=== PATIENT | male | born 1960 | race Caucasian/White ===

== ENCOUNTER 2022-05-08 11:19 | Inpatient (IN) | payer OTHER ==
[~2022-05-08] VITALS: Ht 188 cm; Wt 101.8 kg
[2022-05-08] MEDS ORDERED: INSLAN SQ (11:40)
[2022-05-08] MEDS ORDERED: ASPI-1450 PO (11:42)
[2022-05-08] MEDS ORDERED: SERT-162 PO ×2 (11:42→11:48)
[2022-05-08] MEDS ORDERED: RISP3TAB35 PO (11:42)
[2022-05-08] MEDS ORDERED: METF-1211 PO (11:42)
[2022-05-08] MEDS ORDERED: LEVE500T20 PO ×2 (11:47)
[2022-05-08] MEDS ORDERED: ALBU8HFA IH (11:47)
[2022-05-08] MEDS ORDERED: GLEC1TAB PO (11:47)
[2022-05-08] MEDS ORDERED: DICL-206 PO (11:47)
[2022-05-08] MEDS ORDERED: DOXA2TAB86 PO (11:47)
[2022-05-08] MEDS ORDERED: RISP2TAB45 PO (11:48)
[2022-05-08 12:29] LABS: BASOPHILS % (AUTO) 0.5 % (0.0-2.0); EOSINOPHILS % (AUTO) 2.9 % (1.0-6.0); HEMATOCRIT 38.6 % (41-53); HEMOGLOBIN 13.4 g/dL (13.5-17.5); LYMPHOCYTES # (AUTO) 0.8 K/uL (1.0-4.8); LYMPHOCYTES % (AUTO) 18.4 % (22.0-44.0); MEAN CORPUSCULAR HEMOGLOBIN 29.8 pg (26.0-34.0); MEAN CORPUSCULAR HGB CONC 34.8 G/dL (31.0-37.0); MEAN CORPUSCULAR VOLUME 86 fL (80-100); MONOCYTES # (AUTO) 0.4 K/uL (0.1-1.0); MONOCYTES % (AUTO) 9.3 % (2.0-9.0); NEUTROPHILS # (AUTO) 2.8 K/uL (1.8-7.7); NEUTROPHILS % (AUTO) 68.9 % (40.0-70.0); PLATELET COUNT (AUTO) 76 K/uL (150-450); RED BLOOD CELL COUNT(AUTO) 4.51 MIL/uL (4.50-5.90); RED CELL DISTRIBUTION WIDTH 13.6 % (11.5-14.5)
[2022-05-08 12:35] LABS: CALCIUM, TOTAL 9.3 mg/dL (8.8-10.5); CREATININE 1.48 mg/dL (0.60-1.30); POTASSIUM 4.8 mmol/L (3.5-5.1)
[2022-05-08 12:41] LABS: ALBUMIN 3.6 g/dL (3.4-5.0); BILIRUBIN,TOTAL 0.6 mg/dL (0.1-1.0)
[2022-05-08 13:26] LABS: PROTHROMBIN TIME 10.7 SEC (9.4-11.6)
[2022-05-08] MEDS ORDERED: HEPARIN SODIUM 25000 UNITS/D5W 250 ML IV PRN (13:45)
[2022-05-08] MEDS ORDERED: 0.9% SODIUM CHLORIDE 10 ML SYRINGE IVP PRN (13:45)
[2022-05-08] MEDS ORDERED: ACETAMINOPHEN 325 MG TABLET PO PRN (13:45)
[2022-05-08] MEDS ORDERED: ONDANSETRON HCL 4 MG/2 ML VIAL IVP PRN ×2 (13:45→19:30)
[2022-05-08 14:00] LABS: COVID AG,FIA SOURCE NASOPHARYNGEAL
[2022-05-08 16:46] LABS: GLUCOSE,POINT OF CARE 165 MG/DL (70-110)
[2022-05-08 17:59] VITALS: BP 134/77
[2022-05-08] MEDS ORDERED: ZOLPIDEM TARTRATE 5 MG TABLET PO PRN (19:30)
[2022-05-08] MEDS ORDERED: ALBUTEROL SULFATE 2.5 MG/0.5 ML NEB SOLUTION NEB PRN (19:30)
[2022-05-08] MEDS ORDERED: MAGNESIUM HYDROXIDE SUSPENSION 30 ML UDCUP PO PRN (19:30)
[2022-05-08] MEDS ORDERED: IPRATROPIUM BROMIDE 0.5 MG/2.5 ML NEB SOLUTION NEB PRN (19:30)
[2022-05-08] MEDS ORDERED: DEXTROSE 50%-WATER 25 GM/50 ML SYRINGE IVP PRN (19:30)
[2022-05-08] MEDS ORDERED: BISACODYL 10 MG RECTAL RECTAL SUPPOSITORY PR PRN (19:30)
[2022-05-08 20:10] VITALS: BP 132/76
[2022-05-08] MEDS: LevETIRAcetam 500 MG TABLET PO SCH (20:30)
[2022-05-08] MEDS: RisperiDONE 3 MG TABLET PO SCH (20:30)
[2022-05-08] MEDS: APIXABAN 5 MG TABLET PO SCH (20:30)
[2022-05-08] MEDS: DOXAZOSIN MESYLATE 2 MG TABLET PO SCH (20:30)
[2022-05-08] MEDS: INSULIN GLARGINE,HUM.REC.ANLOG 100 UNITS/ML SQ SCH (20:38)
[2022-05-08] MEDS: INSULIN LISPRO 100 UNITS/ML SQ PRN (20:39)
[2022-05-08] MEDS ORDERED: DICLOFENAC SODIUM 75 MG DR TABLET PO SCH (21:00)
[2022-05-08 22:16] LABS: GLUCOMETER DEV NAME(LOC) 6N.1; GLUCOSE,POINT OF CARE 163 MG/DL (70-110)
[2022-05-09 04:01] VITALS: BP 123/75
[2022-05-09 06:57] LABS: GLUCOMETER DEV NAME(LOC) 6N.1; GLUCOSE,POINT OF CARE 94 MG/DL (70-110)
[2022-05-09 07:53] VITALS: BP 117/72
[2022-05-09 08:07] LABS: BASOPHILS % (AUTO) 0.3 % (0.0-2.0); EOSINOPHILS % (AUTO) 3.7 % (1.0-6.0); HEMATOCRIT 37.8 % (41-53); HEMOGLOBIN 13.3 g/dL (13.5-17.5); LYMPHOCYTES # (AUTO) 0.7 K/uL (1.0-4.8); LYMPHOCYTES % (AUTO) 20.5 % (22.0-44.0); MEAN CORPUSCULAR HEMOGLOBIN 29.9 pg (26.0-34.0); MEAN CORPUSCULAR HGB CONC 35.2 G/dL (31.0-37.0); MEAN CORPUSCULAR VOLUME 85 fL (80-100); MONOCYTES # (AUTO) 0.4 K/uL (0.1-1.0); MONOCYTES % (AUTO) 11.4 % (2.0-9.0); NEUTROPHILS # (AUTO) 2.2 K/uL (1.8-7.7); NEUTROPHILS % (AUTO) 64.1 % (40.0-70.0); PLATELET COUNT (AUTO) 72 K/uL (150-450); RED BLOOD CELL COUNT(AUTO) 4.45 MIL/uL (4.50-5.90); RED CELL DISTRIBUTION WIDTH 13.4 % (11.5-14.5)
[2022-05-09] MEDS: MetFORMIN HCL 500 MG TABLET PO SCH ×2 (08:08→17:04)
[2022-05-09] MEDS: PANTOPRAZOLE SODIUM 40 MG DR TABLET PO SCH (08:08)
[2022-05-09] MEDS: LevETIRAcetam 500 MG TABLET PO SCH ×2 (08:08→20:19)
[2022-05-09] MEDS: SERTRALINE HCL 50 MG TABLET PO SCH (08:08)
[2022-05-09] MEDS: APIXABAN 5 MG TABLET PO SCH ×2 (08:08→20:20)
[2022-05-09] MEDS: RisperiDONE 3 MG TABLET PO SCH ×2 (08:08→20:20)
[2022-05-09] MEDS: ASPIRIN 81 MG CHEWABLE TABLET PO SCH (08:08)
[2022-05-09] MEDS: ACETAMINOPHEN 325 MG TABLET PO PRN ×4 (08:09→21:55)
[2022-05-09] MEDS: INSULIN GLARGINE,HUM.REC.ANLOG 100 UNITS/ML SQ SCH ×2 (08:13→20:25)
[2022-05-09 08:19] LABS: ALBUMIN 3.3 g/dL (3.4-5.0); BILIRUBIN,TOTAL 0.5 mg/dL (0.1-1.0); CALCIUM, TOTAL 8.9 mg/dL (8.8-10.5); CREATININE 1.35 mg/dL (0.60-1.30); POTASSIUM 5.1 mmol/L (3.5-5.1); TOTAL PROTEIN, SERUM 7.5 g/dL (6.4-8.2)
[2022-05-09] MEDS ORDERED: DICL75TA5 PO (11:04)
[2022-05-09] MEDS: INSULIN LISPRO 100 UNITS/ML SQ PRN ×3 (11:11→20:26)
[2022-05-09 14:06] LABS: GLUCOMETER DEV NAME(LOC) 6N.1; GLUCOSE,POINT OF CARE 168 MG/DL (70-110)
[2022-05-09 15:38] VITALS: BP 127/76
[2022-05-09 19:36] VITALS: BP 124/73
[2022-05-09] MEDS: DOXAZOSIN MESYLATE 2 MG TABLET PO SCH (20:20)
[2022-05-09 20:26] LABS: GLUCOMETER DEV NAME(LOC) 6N.2B; GLUCOSE,POINT OF CARE 156 MG/DL (70-110)
[2022-05-10 00:47] LABS: GLUCOMETER DEV NAME(LOC) 6N.2B; GLUCOSE,POINT OF CARE 179 MG/DL (70-110)
[2022-05-10 04:40] VITALS: BP 112/78
[2022-05-10 07:41] LABS: GLUCOMETER DEV NAME(LOC) 6N.2B; GLUCOSE,POINT OF CARE 112 MG/DL (70-110)
[2022-05-10 08:08] VITALS: BP 128/74
[2022-05-10] MEDS: PANTOPRAZOLE SODIUM 40 MG DR TABLET PO SCH (08:50)
[2022-05-10] MEDS: INSULIN GLARGINE,HUM.REC.ANLOG 100 UNITS/ML SQ SCH (08:50)
[2022-05-10] MEDS: LevETIRAcetam 500 MG TABLET PO SCH (08:51)
[2022-05-10] MEDS: MetFORMIN HCL 500 MG TABLET PO SCH (08:51)
[2022-05-10] MEDS: APIXABAN 5 MG TABLET PO SCH (08:51)
[2022-05-10] MEDS: SERTRALINE HCL 50 MG TABLET PO SCH (08:51)
[2022-05-10] MEDS: RisperiDONE 3 MG TABLET PO SCH (08:52)
[2022-05-10] MEDS: ASPIRIN 81 MG CHEWABLE TABLET PO SCH (08:53)
[2022-05-10] MEDS: ACETAMINOPHEN 325 MG TABLET PO PRN (08:58)
[2022-05-10] MEDS ORDERED: APIX5TAB PO ×2 (10:53→10:56)
[2022-05-10] MEDS ORDERED: ACET-2247 PO (10:59)
[2022-05-10] MEDS: INSULIN LISPRO 100 UNITS/ML SQ PRN (11:46)
[2022-05-10 16:21] LABS: GLUCOMETER DEV NAME(LOC) 6N.2B; GLUCOSE,POINT OF CARE 268 MG/DL (70-110)
[2022-05-15] MEDS ORDERED: APIXABAN 5 MG TABLET PO SCH (09:00)
== END 2022-05-10 13:20 | DRG 300 ==
LOC: EMS 11:25 → 6S 16:29
PROVIDERS: ADMIT Hospitalist; ATTEND Hospitalist
PROC: 3E033GC Introduction of Other Therapeutic Substance into Peripheral Vein, Percutaneous Approach (ICD-10-PCS; principal; 2022-05-08)
DX: I82.411 Acute embolism and thrombosis of right femoral vein (principal); E44.1 Mild protein-calorie malnutrition; I82.491 Acute embolism and thrombosis of other specified deep vein of right lower extremity; G40.909 Epilepsy, unspecified, not intractable, without status epilepticus; E11.9 Type 2 diabetes mellitus without complications; N28.9 Disorder of kidney and ureter, unspecified; F19.10 Other psychoactive substance abuse, uncomplicated; G89.29 Other chronic pain; M54.9 Dorsalgia, unspecified; Z20.822 Contact with and (suspected) exposure to COVID-19; E78.00 Pure hypercholesterolemia, unspecified; J45.909 Unspecified asthma, uncomplicated; F32.A Depression, unspecified; N40.0 Benign prostatic hyperplasia without lower urinary tract symptoms; Z72.0 Tobacco use; Z79.4 Long term (current) use of insulin; Z86.718 Personal history of other venous thrombosis and embolism; Z68.28 Body mass index [BMI] 28.0-28.9, adult; Z88.5 Allergy status to narcotic agent
CPT/HCPCS: 80053; 82962; 85025; 85610; 85730; 93971; 99285; J1644; J1815